=== PATIENT | female | born 1985 | race Caucasian/White ===

== ENCOUNTER 2022-05-11 14:51 | Emergency (ER) | payer BC, SELFPAY | END 2022-05-11 17:15 | disposition left against medical advice (07) | PROVIDERS: Emergency Provider Emergency Medicine | DX: R21 Rash and other nonspecific skin eruption (principal) ==

== ENCOUNTER 2024-08-30 10:50 | Emergency (ER) | payer BC, SELFPAY ==
--- NOTE | ~2024-08-30 | CT_ITS ---
EXAMINATION: CT SOFT TISSUE NECK WITH CONTRAST CLINICAL INFORMATION: Right-sided tonsil swelling and pain COMPARISON: None available. TECHNIQUE: Following the intravenous administration of 100 mL of Omnipaque 350 intravenous contrast, helical imaging was performed in the axial plane with generation of coronal and sagittal reformatted images. This CT examination was performed using dose optimization techniques as appropriate, variously including the following: *Automated exposure control *Adjustment of mA and/or kV according to patient size (this includes techniques or standardized protocols for targeted exams where dose is matched to indication/reason for exam; i.e. extremities or head) *Use of iterative reconstruction technique DLP 471 FINDINGS: Visualized intracranial parenchyma is normal. Bilateral paranasal sinuses and mastoid air cells are well-aerated. There is normal symmetric bilateral parotid, submandibular glands and thyroid lobes without focal lesion. Bilateral tonsils are symmetrical and normal. No enhancing mass seen in the oral cavity, pharynx or larynx. There is bilateral moderate size neck lymphadenopathy with lymph nodes measuring 1 cm and less in bilateral neck the lung apices are clear. The tracheal and proximal bronchial airways widely patent. The lung apices are clear. No oral cavity is slightly limited due to beam hardening from dental amalgam. Bilateral carotid arteries and jugular veins are symmetrical. CT/CT soft tissue neck w IV con IMPRESSION: Bilateral neck lymphadenopathy measuring less than 1 cm in short axis, nonspecific. No enhancing mass or airway asymmetry seen. The tonsils are symmetrical and normal. Electronically signed by: Jesus Aleman MD 08/30/2024 03:00 PM [facility]
[2024-08-30 11:20] VITALS: BP 149/98; PULSE 103; RESP 19; TEMP 36.8; O2SAT 99; BMI 29.9
--- NOTE | 2024-08-30 11:23 | ED.GENADULT ---
HPI - General Adult General Chief complaint: General Medical Stated complaint: abscess, sent from Time Seen by Provider: 08/30/24 14:18 History of Present Illness HPI narrative: Patient complains of sore throat and bilateral lateral neck pain for the last 24 hours, no runny nose, there is a mild cough, no sputum no shortness of breath no chest pain, she is able to swallow but it is uncomfortable, denies any voice change no abdominal pain no nausea vomiting or diarrhea Related Data Previous Rx's ?Medication ?Instructions ?Recorded azithromycin 250 mg tablet See Rx Instructions PO .COMPLEX #6 08/30/24 (Zithromax Z-Cliff) tabs Allergies Allergy/AdvReac Type Severity Reaction Status Date / Time amoxicillin [Augmentin] Allergy Unknown Hives Verified 08/30/24 11:22 clavulanic acid [Augmentin] Allergy Unknown Hives Verified 08/30/24 11:22 REPLACED BY [facility] Past Medical History Source: nursing notes reviewed Social History Social History Advance Directives: No Advance Directives Information Provided: Yes Do you have a plan to hurt others: No Plan Physical Exam ED Vital Signs: Vital Signs - 24 hr 08/30/24 11:20 Temperature 98.3 F Pulse Rate 103 H Respiratory Rate 19 Blood Pressure 149/98 H Pulse Oximetry 99 Oxygen Delivery Method Room Air BMI result Body Mass Index 29.9 General appearance cheerful comfortable cooperative no acute distress, speaking full sentences no drooling The ears are clear no redness of tympanic membrane no narrowing of canals The eyes no redness or discharge The nose no sinus tenderness The pharynx there is some posterior redness with a scant amount of exudate but there is no tonsillar swelling no tonsillar asymmetry, voice is normal there is no drooling or trismus, patient can swallow easily and mucous membranes are moist Neck is supple with full range of motion, there is some bilateral lateral minor tenderness no obvious swelling, there is some palpable anterior lymphadenopathy on the right Chest is clear to auscultation no adventitious sounds, breath sounds are full and equal Heart no murmur auscultated Abdomen soft nontender Extremities full range motion x4 Skin no rash Course Course Course Narrative: 38 yo female with PMH of hemachromatosis who has had sore throat for 1 day with R sided neck pain and fever last night. No medications this AM. She was recently treated for bronchitis with steroids and INH but no antibiotics. No recent procedures sent by urgent care for rule out [employer] has never had anything like this before. Able to swallow no voice changes. Will start on labs and CT neck for [employer] low suspicion clinicially this is a RAPID medical screening exam the rest of the history and physical exam is to be done by the main provider. White count was 16, patient likely has a minor illness, sepsis very unlikely, repeat pulse was 88 other vitals normal test was negative, COVID flu and strep tests were all negative CT soft tissue neck with contrast ordered from triage was negative for abscess or any acute pathology, did show some minor lymphadenopathy in the neck Patient is discharged diagnosis pharyngitis She remains well-appearing and comfortable tolerating p.o. throughout ER visit Medications Administered Discontinued Medications Generic Name Dose Route Start Last Admin Trade Name Freq PRN Reason Stop Dose Admin Iohexol 100 ml 08/30/24 13:53 08/30/24 13:56 Iohexol 350 Mg/Ml 100 Ml Infus..Btl IV 08/30/24 13:54 75 ml ONCE ONE Administration Medical Decision Making Lab Data [facility] Lab Attestation statement: I reviewed the patient's lab results. 08/30/24 12:59 08/30/24 12:59 Labs: Lab Results 08/30/24 Range/Units 12:59 WBC 16.3 H (4.8-10.8) X10*3/uL RBC 4.60 (4.20-5.50) X10*6/uL Hgb 14.3 (12.0-16.0) g/dl Hct 42.7 (37.0-47.0) % MCV 92.8 (80.0-98.0) fL MCH 31.1 (27.0-33.0) pg MCHC 33.5 (31.0-35.0) g/dl RDW 12.6 (11.0-16.0) % Plt Count 330 (160-400) X10*3/uL MPV 10.0 (9.4-12.3) fL Immature Gran % (Auto) 0.6 H (0.0-0.4) % Neut % (Auto) 77.4 H (45-73) % Lymph % (Auto) 13.6 L (20-40) % [place] % (Auto) 6.7 (2-11) % Eos % (Auto) 1.5 (0-4) % Baso % (Auto) 0.2 (0-2) % Lymph # (Auto) 2.2 (1.2-4.9) X10*3/uL [place] # (Auto) 1.1 (0.1-1.2) X10*3/uL Eos # (Auto) 0.2 (0.0-0.4) X10*3/uL Baso # (Auto) 0.0 (0.0-0.2) X10*3/uL Abs Immat Gran (auto) 0.09 H (0.00-0.03) X10*3/uL Absolute Neuts (auto) 12.6 H (2.0-8.3) x10*3/uL Absolute Nucleated RBC 0.000 (0.0-0.012) X10*3/uL Nucleated RBC % (auto) 0.0 (0.0-0.2) /100WBC Sodium 137 (135-145) mmol/L Potassium 4.1 (3.3-5.1) mmol/L Chloride 103 (96-108) mmol/L Carbon Dioxide 25 (22-29) mmol/L Anion Gap 13 (12-20) BUN 8 L (9-16) mg/dL Creatinine 0.82 (0.5-1.4) mg/dL Estim Creat Clear Calc 96.4 Estimated GFR > 60 Random Glucose 92 (60-115) mg/dL Calcium 9.6 (8.4-10.2) mg/dL Beta HCG, Quant < 2 mIU/mL Influenza Type A (PCR) NEGATIVE (Negative) Influenza Type B (PCR) NEGATIVE (Negative) RSV RNA Qual (PCR) NEGATIVE (Negative) SARS-CoV-2 RNA (RT-PCR) NEGATIVE (Negative) S. pyogenes GrpA BRAIN Negative (Negative) Discharge Plan Discharge Clinical Impression: Pharyngitis Patient Disposition: Home, Self-Care Additional Instructions: CT scan did not show any abscess or any worrisome finding in your throat On exam there was some redness to the back of her throat which is likely a virus but just in case I wrote the antibiotics Zithromax It is fine to wait a day or 2 before starting it to see if her sore throat just goes away Drink plenty of fluids, honey, Tylenol or Motrin as needed Strep COVID and flu tests were all negative Return any time any worse condition or any concerns Prescriptions: New azithromycin [Zithromax Z-Cliff] 250 mg tablet See Rx Instructions .ROUTE .COMPLEX Qty: 6 0RF Rx Instructions: For 250 mg dose pack: take 500 mg today (day 1), then 250 mg for 4 days (days 2-5) Stand Alone Forms: Work/School Release Print Language: Italian
[2024-08-30 13:04] LABS: MANUAL DIFF FLAG NO
[2024-08-30 13:05] LABS: Basophils Percent Auto 0.2 % (0-2); Eosinophils Absolute Auto 0.2 X10*3/uL (0.0-0.4); Eosinophils Percent Auto 1.5 % (0-4); Hematocrit 42.7 % (37.0-47.0); Hemoglobin 14.3 g/dl (12.0-16.0); Imm Gran Abs Auto 0.09 X10*3/uL (0.00-0.03); Imm Gran Pct Auto 0.6 % (0.0-0.4); Lymphocytes Absolute Auto 2.2 X10*3/uL (1.2-4.9); Lymphocytes Percent Auto 13.6 % (20-40); Mean Corpuscular HGB Conc 33.5 g/dl (31.0-35.0); Mean Corpuscular Hemoglobin 31.1 pg (27.0-33.0); Mean Corpuscular Volume 92.8 fL (80.0-98.0); Monocytes Absolute Auto 1.1 X10*3/uL (0.1-1.2); Monocytes Percent Auto 6.7 % (2-11); Neutrophils Absolute Auto 12.6 x10*3/uL (2.0-8.3); Neutrophils Percent Auto 77.4 % (45-73); Platelet Count 330 X10*3/uL (160-400); Red Cell Distribution Width 12.6 % (11.0-16.0); White Blood Count 16.3 X10*3/uL (4.8-10.8)
[2024-08-30 13:13] LABS: IDNOW Serial# 58CA691E; Strep A Nucleic Acid Negative (Negative)
[2024-08-30 13:24] LABS: Anion Gap 13 (12-20); Blood Urea Nitrogen 8 mg/dL (9-16); Calcium 9.6 mg/dL (8.4-10.2); Carbon Dioxide 25 mmol/L (22-29); Chloride 103 mmol/L (96-108); Creatinine Clr Calc Pharmacy 96.4; Estimated Glomerular Filt Rate > 60; Glucose Random 92 mg/dL (60-115); Potassium 4.1 mmol/L (3.3-5.1); Sodium 137 mmol/L (135-145)
[2024-08-30 13:27] LABS: HCG Quantitative < 2 mIU/mL
[2024-08-30 13:42] LABS: Influenza A PCR NEGATIVE (Negative); Influenza B PCR NEGATIVE (Negative); Resp Syncy Virus RNA Qual PCR NEGATIVE (Negative); SARS COV2 PCR INHOUSE NEGATIVE (Negative)
[2024-08-30] MEDS: iohexoL 350 MG/ML 100 ML INFUS..BTL IV (13:56)
--- OUTSIDE RECORDS SUMMARY | 2024-08-30 14:40 | XMS_ITS ---
Author Name [facility] Organization Unknown Results Test Name/Text Value Interpretation Date Range Source Ferritin SerPl-mCnc 556ng/mL Above high normal [id number] 13 - 150 [facility] Iron Satn MFr SerPl 40% Normal [id number] 15 - 50 [facility] TIBC SerPl-mCnc 198ug/dL Below low normal [id number] 250 - 450 [facility] Iron SerPl-mCnc 79ug/dL Normal [id number] 37 - 145 [facility] MCV RBC Auto 94fL Normal [id number] 80 - 100 [facility] Lymphocytes # Bld Auto 1.48y5709/uL Normal [id number] 0.6 - 3.7 [facility] WBC # Bld Auto 8.8l8470/uL Normal [id number] 4 - 11 [facility] Monocytes/leuk NFr Bld Auto 7.4% Normal [id number] 4 - 12 [facility] Imm Granulocytes/leuk NFr Bld Auto 0.2% Normal [id number] 0 - 1 [facility] nRBC # Bld Auto 2o5530/uL Normal [id number] 0 - 1 [facility] Platelet # Bld Auto 556y5799/uL Normal [id number] 150 - 420 [facility] PMV Bld Auto 10.6fL Normal [id number] 8 - 12 [facility] MCH RBC Qn Auto 30.9pg Normal [id number] 27 - 33 [facility] Eosinophil # Bld Auto 0.83v2350/uL Normal [id number] 0 - 1 [facility] Neutrophils/leuk NFr Bld Auto 66.8% Normal [id number] 39 - 72 [facility] Imm Granulocytes # Bld Auto 0.50m1543/uL Normal [id number] 0 - 0.3 [facility] RBC # Bld Auto 4.7M/uL Normal [id number] 4 - 6 [facility] Monocytes # Bld Auto 0.99g4455/uL Normal [id number] 0 - 1 [facility] RDW RBC Auto-Rto 12.3% Normal [id number] 11 - 15 [facility] Lymphocytes/leuk NFr Bld Auto 23.1% Normal [id number] 17 - 50 [facility] Eosinophil/leuk NFr Bld Auto 2% Normal [id number] 0 - 5 [facility] Basophils # Bld Auto 0.99m6848/uL Normal [id number] 0 - 1 [facility] nRBC/100 WBC Bld Auto-Rto 0% Normal [id number] 0 - 1 [facility] Neutrophils # Bld Auto 5.97y8483/uL Normal [id number] 2 - 7.6 [facility] Hct VFr Bld Auto 44.2% Normal [id number] 35 - 45 [facility] Hgb Bld-mCnc 14.5g/dL Normal [id number] 11.7 - 15.5 [facility] MCHC RBC Auto-mCnc 32.8g/dL Normal [id number] 31 - 36 [facility] Basophils/leuk NFr Bld Auto 0.5% Normal [id number] 0 - 1.4 [facility] Path Interp Bld-Imp The laboratory evaluation does not identify a specific etiology for bleeding. Normal [id number] [facility] Fact VIII Act/Nor PPP 133% Normal [id number] 66 - 143 [facility] vWf:RCo Act/Nor PPP Pl Agg 117% Normal [id number] 58 - 163 [facility] vWF Ag Act/Nor PPP IA 159% Normal [id number] 62 - 175 [facility] Thrombin time 17.9sec Normal [id number] 15.8 - 19.4 [facility] CRP SerPl HS-mCnc 7.4mg/L Above high normal [id number] - [facility] Ferritin SerPl-mCnc 520ng/mL Above high normal [id number] 13 - 150 [facility] Iron Satn MFr SerPl 14% Below low normal [id number] 15 - 50 [facility] TIBC SerPl-mCnc 245ug/dL Below low normal [id number] 250 - 450 [facility] Iron SerPl-mCnc 34ug/dL Below low normal [id number] 37 - 145 [facility] AST/ALT SerPl-cRto 1.1 Normal [id number] - [facility] Glucose SerPl-mCnc 87mg/dL Normal [id number] 70 - 100 [facility] AST SerPl w P-5'-P-cCnc 52U/L Above high normal [id number] 10 - 35 [facility] Calcium SerPl-mCnc 9.7mg/dL Normal [id number] 8.8 - 10 .2 [facility] ALT SerPl w/o P-5'-P-cCnc 46U/L Above high normal [id number] 10 - 35 [facility] Sodium SerPl-sCnc 139mmol/L Normal [id number] 136 - 144 [facility] BUN SerPl-mCnc 7mg/dL Normal [id number] 6 - 20 [facility] ALP SerPl-cCnc 99U/L Normal [id number] 9 - 122 [facility] Globulin Plas-mCnc 3g/dL Normal [id number] 2 - 3.9 [facility] HCO3 SerPl-sCnc 26mmol/L Normal [id number] 20 - 30 [facility] Creat SerPl-mCnc 0.7mg/dL Normal [id number] 0.4 - 1.3 [facility] Anion Gap3 SerPl-sCnc 9 Normal [id number] 7 - 17 [facility] BUN/Creat SerPl 10 Normal [id number] 8 - 23 [facility] Albumin SerPl BCG-mCnc 4.4g/dL Normal [id number] 3.6 - 5.1 [facility] Bilirub SerPl-mCnc 0.3mg/dL Normal [id number] - [facility] Chloride SerPl-sCnc 104mmol/L Normal [id number] 98 - 10 7 [facility] Albumin/Glob SerPl 1.5 Normal [id number] 1 - 2.2 [facility] Potassium SerPl-sCnc 4.5mmol/L Normal [id number] 3.3 - 5.3 [facility] GFR/BSA.pred SerPlBld DJF-DKK-SoLPaz 60mL/min/1.73m2 Normal [id number] - [facility] Prot SerPl-mCnc 7.4g/dL Normal [id number] 5.9 - 8.3 [facility] ESR Bld Qn 40mm/hr Above high normal [id number] 0 - 20 [facility] BKR PFA INTERPRETATIVE REPORTING See Comment Normal [id number] [facility] Closure Tme Rachel+ADP Bld Normal [id number] [facility] Closure Tme Rachel+Epinep Bld 91sec Normal [id number] 80 - 180 [facility] aPTT PPP 27.6seconds Normal [id number] [address] - [address] [facility] [address] Fibrinogen PPP-mCnc 388mg/dL Normal [id number] 194 - 4 48 [facility] INR PPP 1 Normal [id number] 0.87 - 1.12 [facility] Prothrombin time 10.7seconds Normal [id number] 9.4 - 11 .9 [facility] MCV RBC Auto 94.9fL Normal [id number] 80 - 100 [facility] Lymphocytes # Bld Auto 1.77w8904/uL Normal [id number] 0.6 - 3.7 [facility] WBC # Bld Auto 5.7t1255/uL Normal [id number] 4 - 11 [facility] Monocytes/leuk NFr Bld Auto 9.9% Normal [id number] 4 - 12 [facility] Imm Granulocytes/leuk NFr Bld Auto 0.2% Normal [id number] 0 - 1 [facility] nRBC # Bld Auto 1z3323/uL Normal [id number] 0 - 1 [facility] Platelet # Bld Auto 903s6874/uL Normal [id number] 150 - 420 [facility] PMV Bld Auto 10.7fL Normal [id number] 8 - 12 [facility] MCH RBC Qn Auto 30.5pg Normal [id number] 27 - 33 [facility] Eosinophil # Bld Auto 0.63c2041/uL Normal [id number] 0 - 1 [facility] Neutrophils/leuk NFr Bld Auto 62.1% Normal [id number] 39 - 72 [facility] Imm Granulocytes # Bld Auto 0.29u9902/uL Normal [id number] 0 - 0.3 [facility] RBC # Bld Auto 4.75M/uL Normal [id number] 4 - 6 [facility] Monocytes # Bld Auto 0.26e7516/uL Normal [id number] 0 - 1 [facility] RDW RBC Auto-Rto 12.7% Normal [id number] 11 - 15 [facility] Lymphocytes/leuk NFr Bld Auto 25.7% Normal [id number] 17 - 50 [facility] Eosinophil/leuk NFr Bld Auto 1.5% Normal [id number] 0 - 5 [facility] Basophils # Bld Auto 0.57h0000/uL Normal [id number] 0 - 1 [facility] nRBC/100 WBC Bld Auto-Rto 0% Normal [id number] 0 - 1 [facility] Neutrophils # Bld Auto 3.93c1263/uL Normal [id number] 2 - 7.6 [facility] Hct VFr Bld Auto 45.1% Above high normal [id number] 35 - 45 [facility] Hgb Bld-mCnc 14.5g/dL Normal [id number] 11.7 - 15.5 [facility] MCHC RBC Auto-mCnc 32.2g/dL Normal [id number] 31 - 36 [facility] Basophils/leuk NFr Bld Auto 0.6% Normal [id number] 0 - 1.4 [facility]
[2024-08-30 16:12] VITALS: BP 101/65; PULSE 102; RESP 18; TEMP 37.4; O2SAT 98
[2024-08-30 16:17] VITALS: BP 101/65; PULSE 102; RESP 18; TEMP 37.4; O2SAT 98
== END 2024-08-30 16:17 | disposition home or self-care (01) ==
PROVIDERS: Emergency Medicine; Emergency Provider Emergency Medicine; PCP Physician Assistant
DX: J02.9 Acute pharyngitis, unspecified (principal); M54.2 Cervicalgia; R50.9 Fever, unspecified; R10.2 Pelvic and perineal pain; Z03.818 Encounter for observation for suspected exposure to other biological agents ruled out; Z79.899 Other long term (current) drug therapy
CPT/HCPCS: 0241U; 70491; 80048; 84702; 85025; 87651; 99283; 99284; Q9967

== ENCOUNTER → 2024-08-30 11:22 | Outpatient (BNV) | payer BC, SELFPAY | PROVIDERS: Emergency Provider Emergency Medicine; PCP Physician Assistant; Visit Provider Radiology Diagnostic Radiology | DX: J35.1 Hypertrophy of tonsils (principal); R59.0 Localized enlarged lymph nodes | CPT/HCPCS: 70491 ==

== ENCOUNTER 2025-07-29 09:13 | Outpatient (REF) | payer BC, SELFPAY ==
[2025-07-29 14:32] LABS: Hematocrit 42.4 % (37.0-47.0); Hemoglobin 13.2 g/dl (12.0-16.0); Mean Corpuscular HGB Conc 31.1 g/dl (31.0-35.0); Mean Corpuscular Hemoglobin 29.8 pg (27.0-33.0); Mean Corpuscular Volume 95.7 fL (80.0-98.0); NRBC Abs Auto 0.000 X10*3/uL (0.0-0.012); NRBC Pct Auto 0.0 /100WBC (0.0-0.2); Platelet Count 279 X10*3/uL (160-400); Red Blood Count 4.43 X10*6/uL (4.20-5.50); White Blood Count 7.5 X10*3/uL (4.8-10.8)
[2025-07-29 15:09] LABS: Alanine Aminotransferase 24 U/L (0-31); Albumin Level 4.4 g/dL (3.5-5.0); Alkaline Phosphatase 60 U/L (39-117); Anion Gap 10 (12-20); Aspartate Amino Transferase 30 U/L (5-31); Blood Urea Nitrogen 13 mg/dL (9-16); Calcium 9.1 mg/dL (8.4-10.2); Carbon Dioxide 26 mmol/L (22-29); Chloride 108 mmol/L (96-108); Cholesterol 148 mg/dL (<200); Estimated Glomerular Filt Rate > 60; Ferritin 429 ng/mL (10-122); HDL Cholesterol 72 mg/dL (>40); Iron 112 mcg/dL (30-160); Percent Iron Saturation 36 % (15-50); Potassium 4.1 mmol/L (3.3-5.1); Sodium 140 mmol/L (135-145); Total Iron Binding Capacity 307 mcg/dL (228-428); Total Protein 7.4 g/dL (6.5-8.0); Triglycerides 79 mg/dL (<150); Unsaturated Iron Binding 195 ug/dL
[2025-08-02 11:24] LABS: Vitamin D 25-OH, D2 <4 ng/mL; Vitamin D 25-OH, D3 36 ng/mL; Vitamin D 25-OH, Total 36 ng/mL (30-100)
== END 2025-07-29 09:14 | disposition home or self-care (01) ==
LOC: HO.WFDLDS 09:13
PROVIDERS: Visit Provider Physician Assistant Medical
DX: Z00.00 Encounter for general adult medical examination without abnormal findings (principal); E78.5 Hyperlipidemia, unspecified; D64.9 Anemia, unspecified; Z91.018 Allergy to other foods; Z14.8 Genetic carrier of other disease; E55.9 Vitamin D deficiency, unspecified; M85.80 Other specified disorders of bone density and structure, unspecified site; Z13.31 Encounter for screening for depression; Z13.39 Encounter for screening examination for other mental health and behavioral disorders
CPT/HCPCS: 36415; 80053; 80061; 82306; 82728; 83540; 85027; 96127

== ENCOUNTER 2025-07-29 09:13 | Outpatient (AMB) | payer BC, SELFPAY ==
--- NOTE | 2025-07-29 09:17 | A.OFFPC_ITS ---
Vital Signs 07/29/25 09:24 Height 5 ft 4 in Weight 168 lb 4 oz BMI 28.9 BP 116/68 Blood Pressure Location Rt brachial Position Sitting Respiration 15 Pulse 62 Pulse Source Pulse Oximeter Temp 98.4 F Temp Source Temporal Artery Scan Pulse Oximetry (%) 98 Oxygen Delivery Method Room Air Intake Visit Reasons: CPE Intake Note: Lizzie presents in the office today to establish care. 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 Is last menstrual period known: Yes Last menstrual period: 07/29/25 Patient : No Allergies amoxicillin (Augmentin) Allergy (Unknown, Verified 07/29/25 09:21) Hives clavulanic acid (Augmentin) Allergy (Unknown, Verified 07/29/25 09:21) Hives bee pollen (bee stings) Allergy (Verified 07/29/25 09:21) Vomiting wheat Allergy (Verified 07/29/25 09:21) vomiting Tobacco use date assessed: 07/29/25 Dental Screening Dental Screen Date: 07/29/25 Did you have a dental visit in the last 12 months?: Yes Did you have a dental problem in the last 6 months where you did not have access to dental care?: No Was dental information given to patient?: Patient has dentist HPI HPI Comments History of Present Illness Details 39-year-old female with a past medical h istory of wheat allergy, vitamin-D deficiency, 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 She transferred from [facility]. Previous records not available at the appointment today. Obesity-treated with Zepbound 7.5 mg weekly. Patient says her insurance stopped covering it because her last PCP kept her on this dose for maintenance, and they would not appeal the insurance decision. Patient endorses 90 lb weight loss with GLP 1 and lifestyle modification. She is continuing to eat a low carb, healthy diet. She does not drink alcohol. She exercises 3-4 days per week. She wants to see if she can maintain her weight loss without the medic ation, and her insurance will not be covered weight loss medications in 2025. Elevated ferritin-followed by [facility]. She has 1 copy of the hemochromatosis gene mutation. They also detected vitamin-C deficiency which they think is related to high ferritin. They have discussed therapeutic phlebotomy. She sees Gynecology at [facility]. Eye and dental exams are up-to-date. She believes her tetanus vaccine is up-to-date. Seen by Dr. Tabor previously and diagnosed with wheat allergy. She has done much better since removing this from her diet. Previously was having a lot of sinopulmonary infections. Doing better since she eliminated wheat from her diet and had a booster of the pneumonia vaccine. She does have a an intermittent rash on her chest and trunk that is itchy and bumpy. Sometimes it goes away completely. This has been going on for the past few months. Sweating makes it worse. Application of topical triamcinolone temporarily improves it. Denies new environmental exposures. ROS: Constitutional: No unexplained weight loss, fever, chills, fatigue or night sweats. Eyes: No vision changes, blurry vision, double vision, eye pain, eye redness, eye discharge. ENT: No hearing loss, sneezing, congestion, runny nose or sore throat. Respiratory: No shortness of breath, cough or sputum production. Cardiovascular: No chest pain, chest pressure or chest discomfort. No palpitations or pedal edema. Gastrointestinal: No anorexia, nausea, vomiting or diarrhea. No abdominal pain or blood in stool. Genitourinary: No dysuria, hematuria, urinary frequency. Neurologic: No headache, dizziness, syncope, unilateral weakness, ataxia, numbness or tingling in the extremities. Musculoskeletal: No muscle pain, back pain, joint pain or swelling. Hematologic/Lymphatics: No bleeding or bruising. No painful lymph nodes. Skin: See HPI Endocrine: No cold or heat intolerance. No polyuria or polydipsia. Psychiatric: No depression or anxiety. No SI/HI. Physical exam: Constitutional: Alert, in no distress. Head: Normocephalic. Eyes: Pupils are equal, round and reactive to light. Extraocular muscles intact. Ear, Nose and Throat: Canals clear. TMs normal. Normal nasal mucosa. No nasal discharge. No oral lesions. Neck: Supple, Full range of motion. No lymphadenopathy. No palpable thyroid masses. Respiratory: Clear to auscultation. Cardiovascular: S1 S2 regular. No murmurs. Gastrointestinal: Abdomen soft, non-tender, non-distended. Normal bowel sounds. No palpable masses. Neurologic: No focal neurological deficits. Symmetric patellar reflexes. Moves all extremities spontaneously. Skin: Excoriations, some papules with hemorrhagic crust noted on the sides of the abdomen and on the chest and sides of the breasts. Musculoskeletal: No gross deformities. Normal range of motion. Extremities: Warm and well perfused. No clubbing, cyanosis or edema. Intact peripheral pulses bilaterally Psychiatric: Normal mood and affect [facility] Medical History (Updated 07/29/25 @ 13:41 by JAVIER Baugh) History of obesity Dermatitis Wheat allergy Routine physical examination Carrier of hemochromatosis HFE gene mutation Vitamin D deficiency H/O mammogram Surgical History (Updated 07/29/25 @ 09:32 by Nicole Mars [facility]) H/O foot surgery History of tonsillectomy History of appendectomy Family History (Updated 07/29/25 @ 09:31 by Nicole Mars [facility]) Father Hypertension Diabetes Cardiovascular disease Paternal Grandmother Hypertension Diabetes Sister Asthma Thyroid disorder Maternal Grandmother Diabetes Breast cancer Maternal Grandfather Lung cancer Social History (Updated 07/29/25 @ 09:24 by Nicole Mars [facility]) Housing: House Alcohol intake: current Patient Tobacco Use Status: Never used Tobacco e-Cigarette/Vaping Use: Never Used Second Hand Smoke Exposure: No service: No Current occupational status: employed 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 1. Little interest or pleasure in doing things: not at all 2. Feeling down, depressed, or hopeless: not at all 3. Trouble falling or staying asleep, or sleeping too much: not at all 4. Feeling tired or having little energy: not at all 5. Poor appetite or overeating: not at all 6. Feeling bad about yourself - or that you are a failure or have let yourself or your family down: not at all 7. Trouble concentrating on things, such as reading the newspaper or watching television: not at all 8. Moving or speaking so slowly that other people could have noticed. Or the opposite - being so fidgety or restless that you have been moving around a lot more than usual: not at all 9. Thoughts that you would be better off or of hurting yourself in some way: not at all Total score: 0 Depression Screening Interpretation: Negative Depression Screening Done: Yes 25065 - PHQ-9 Billing: Yes Source: Developed by Drs. Marvni Castaneda, Yoli Andersen, Liam Thompson and colleagues, with an educational paz from [employer]. Thrive Questionnaire Date Thrive assessed: 07/29/25 I am a: Patient What is your living situation today?: I have a steady place to live Within the past 12 months, did the food you bought not last and you didn't have the money to get more?: Never true Within the past 12 months, did you worry whether your food would run out before you got money to buy more?: Never true Do you have trouble paying for medicines?: No Do you have trouble getting transportation to medical appointments?: No Do you have trouble paying your heating and electricity bill?: No Do you have trouble taking care of your child, family member or friend?: No Do you have trouble with day-to-day activities such as bathing, preparing meals, shopping, managing finances, etc.?: No Are you currently unemployed and looking for a job?: No Are you interested in more education?: No Please select the resources that you would like help with: None Currently or been in a relationship where the following occur: No concerns reported THRIVE Score: 0 AUDIT C Alcohol Use Questionnaire (AUDIT-C) 1. How often do you have a drink containing alcohol?: 2-4 times a month 2. How many drinks containing alcohol do you have on a typical day when you are drinking?: 1 or 2 3. How often do you have six or more drinks on one occasion?: Never Total Score: 2 JOSÉ MANUEL-7 AMB Questionnaire JOSÉ MANUEL-7 Date JOSÉ MANUEL - 7 assessed: 07/29/25 Feeling nervous, anxious, or on edge: 0 = Not at all Not being able to stop or control worryin = Not at all Worrying too much about different things: 0 = Not at all Trouble relaxin = Not at all Being so restless that it is hard to sit still: 0 = Not at all Becoming easily annoyed or irritable: 0 = Not at all Feeling afraid as if something awful might happen: 0 = Not at all Total JOSÉ MANUEL-7 score (0-4 normal; 5-9 mild; 10-14 moderate; 15-21 severe): 0 Source: Developed by Drs. Marvin Castaneda, Yoli Andersen, Liam Thompson and colleagues, with an educational paz from [employer]. JOSÉ MANUEL-7 Assessment Billing JOSÉ MANUEL-7 Assessment Tool: JOSÉ MANUEL-7 Assessment 95697 Physical exam (Primary Care) Vital Signs: Last Vital Signs Temp 98.4 F 07/29/25 09:24 Pulse 62 07/29/25 09:24 Resp 15 07/29/25 09:24 BP 116/68 07/29/25 09:24 Pulse Ox 98 07/29/25 09:24 Oxygen Delivery Method Room Air 07/29/25 09:24 BMI result Body Mass Index 28.9 Tobacco/Smoking Status: Tobacco use Status Tobacco use date assessed 07/29/25 07/29/25 09:31 Patient Tobacco Use Status Never used Tobacco 07/29/25 09:31 e-Cigarette/Vaping Use Never Used 07/29/25 09:31 PHQ-9: PHQ-9 Score PHQ-9: Total score 0 07/29/25 09:31 Depression Screening Interpretation: Negative Thrive Assessment: Date of Thrive Assessment Date Thrive assessed 07/29/25 07/29/25 09:31 Currently or been in a relationship where the following occur: No concerns reported Coding Level of Care Code New Pt Prev Care 18-39yr(64654 Complex visit Add On G2211 Diagnoses Routine physical examination Z00.00 Vitamin D deficiency E55.9 Carrier of hemochromatosis HFE gene mutation Z14.8 Wheat allergy Z91.018 Dermatitis L30.9 History of obesity Z86.39 Additional Codes JOSÉ MANUEL-7 Assessment Billing - JOSÉ MANUEL-7 Assessment Tool: JOSÉ MANUEL-7 Assessment 57641 ([id number]) PHQ-9 - 63524 - PHQ-9 Billing: Yes ([id number]) Assessment & Plan Assessment & Plan (1) Routine physical examination: Code(s): Z00.00 - Encounter for general adult medical examination without abnormal findings Category: Medical Plan: Patient is seen today for a routine physical. As part of this visit we reviewed the following issues, which are considered and essential part of preventative health in this age group: - Annual Cat Scan Technologist exam - Blood pressure screening annually - Cholesterol screening - Osteoporosis prevention including calcium/vitamin D intake, weight bearing exercise & smoking cessation - Nutritional and exercise counseling - Counseling of injury prevention including fire prevention, smoke alarms and seat belt usage - Screening for depression - Prevention of and/or testing for infectious diseases-patient declines screenings - Recommendations about immunizations - Recommendation of an eye exam (2) Vitamin D deficiency: Code(s): E55.9 - Vitamin D deficiency, unspecified Category: Medical Plan: Check vitamin-D level. (3) Carrier of hemochromatosis HFE gene mutation: Code(s): Z14.8 - Genetic carrier of other disease Category: Medical Plan: Patient is followed by [facility]. They may be proceeding with therapeutic phlebotomy. (4) Wheat allergy: Code(s): Z91.018 - Allergy to other foods Category: Medical Plan: Continue avoidance. She also has an allergy to bee stings. Her EpiPen is up-to-date. (5) Dermatitis: Code(s): L30.9 - Dermatitis, unspecified Category: Medical Plan: Contact allergen suspected. She may need patch testing. She has a box maker and will contact them, and I will also refer her back to Dr. Tabor for evaluation. She can use triamcinolone twice daily for 7 days as needed, and we reviewed side effects of topical steroids. (6) History of obesity: Code(s): Z86.39 - Personal history of other endocrine, nutritional and metabolic disease Category: Medical Plan: 90 lb weight loss with lifestyle modifications and GLP 1. Her insurance is no longer covering this. She wants to try to maintain weight loss on her own without medication at this time. Plan Schedule physical exam in 1 year. Orders: Orders Comprehensive Met. Panel Today E55.9 - Vitamin D deficiency, unspecified, Z00.00 - Encounter for general adult medical examination without abnormal findings, Z14.8 - Genetic carrier of other disease, Z91.018 - Allergy to other foods Ferritin Today D64.9 - Anemia, unspecified, E55.9 - Vitamin D deficiency, unspecified, Z00.00 - Encounter for general adult medical examination without abnormal findings, Z14.8 - Genetic carrier of other disease, Z91.018 - Allergy to other foods Vitamin D 25-OH (D2 and D3) Today E55.9 - Vitamin D deficiency, unspecified, M85.80 - Other specified disorders of bone density and structure, unspecified site, Z00.00 - Encounter for general adult medical examination without abnormal findings, Z14.8 - Genetic carrier of other disease, Z91.018 - Allergy to other foods Complete Blood Count no Diff Today E55.9 - Vitamin D deficiency, unspecified, Z00.00 - Encounter for general adult medical examination without abnormal findings, Z14.8 - Genetic carrier of other disease, Z91.018 - Allergy to other foods IRON PROFILE Today D64.9 - Anemia, unspecified, E55.9 - Vitamin D deficiency, unspecified, Z00.00 - Encounter for general adult medical examination without abnormal findings, Z14.8 - Genetic carrier of other disease, Z91.018 - Allergy to other foods Lipid Panel Today E55.9 - Vitamin D deficiency, unspecified, E78.5 - Hyperlipidemia, unspecified, Z00.00 - Encounter for general adult medical examination without abnormal findings, Z14.8 - Genetic carrier of other disease, Z91.018 - Allergy to other foods Referrals Allergy & Immunology Referral L30.9 - Dermatitis, unspecified Medications: Discontinued azithromycin (Zithromax Z-Cliff) Discontinued Reason: Patient no longer taking For 250 mg dose pack: take 500 mg today (day 1), then 250 mg for 4 days (days 2-5) 6 tabs 0RF
[2025-07-29 09:24] VITALS: BP 116/68; PULSE 62; RESP 15; TEMP 36.9; O2SAT 98; BMI 28.9
--- OUTSIDE RECORDS SUMMARY | 2025-07-29 10:55 | XMS_ITS | Clinical Summary ---
Author Organization [facility] Address [address] [place] [id number] Phone Care Team Providers Care Visual Supervisor Name Role Phone Elizabeth Joseph Primary Care Provider [phone] Allergies Active Allergy Reactions Criticality Noted Date Comments Amoxicillin-Pot Clavulanate Hives 12/05/19 16 Venom-Honey Bee Vomiting 03/29/2023 Wheat Diarrhea,Headaches,H mariposa, Nausea and/or Vomiting 07/18/2024 Medications tirzepatide, weight loss, (ZEPBOUND) 12.5 mg/0.5 mL subcutaneous pen Inject 12.5 mg under the skin. 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 Not on anthony e 03/04/2023 Are you concerned about learning? Not on file 03/04/2023 No 03/04/2023 No 03/04/2023 Digital Access Answer Date Recorded No 03/04/2023 No 03/04/2023 Reliable internet access at home? Not on file 03/04/2023 Device with a working camera? Not on file Comments Unknown Sex and Gender Information Value Date Recorded Sex Assigned at Not on file Legal Sex Female 1:11 PM EDT Gender Identity Not on file Sexual Orientation Not on file Last Filed Vital Signs Vital Sign Reading Time Taken Comments Blood Pressure - - Pulse - - Temperature - - Respiratory Rate - - Oxygen Saturation - - Inhaled Oxygen Concentration - - Weight 71.7 kg (158 lb) 01/28/2025 3:42 PM EDT Height 162.6 cm (5' 4 ) 01/28/2025 3:42 PM EDT Body Mass Index 27.12 01/28/2025 3:42 PM EDT Plan of Treatment Health Maintenance Due Date Last Done Comments DEPRESSION SCREENING 1999 HEPATITIS C SCREENING 12/24/2005 HIV ONE-TIME SCREENING (18-65 YEARS) 12/24/2005 PAP SMEAR 12/24/2008 SCREENING FOR DIABETES 12/24/2022 INFLUENZA VACCINE (#1) 2025 9, 05/24/2018, 06/10/2017, Additional history exists COVID-19 VACCINE ( season) 2025 09/06/2021, 10/07/2020, 09/09/2020 Adult Td,Tdap Booster 05/17/2027 05/17/2017 , 06/09/2007, 12/04/1999 MENINGOCOCCAL VACCINES (ACWY) Completed 06/08/2006 HEPATITIS A VACCINES Aged Out 04/30/2009, 09/25/19 09 No longer eligible based on patient's age to complete this topic PNEUMOCOCCAL VACCINES (0-49 years) Aged Out 01/17/2023, 01/17/2023 No longer eligibl e based on patient's age to complete this topic SMOKING STATUS SCREENING (Once After 26 Yrs) Completed 01/28/2025 HIB VACCINES Aged Out No longer eligi ble based on patient's age to complete this topic MENINGOCOCCAL VACCINES (B) Aged Out N o longer eligible based on patient's age to complete this topic Medical Devices Not on file Insurance [facility] PPO EPO [facility] PPO EPO [facility] PPO EPO [facility] PPO EPO [facility] PPO EPO [facility] PPO EPO Care Teams Visual Supervisor Relationship Specialty Start Date End Date Elizabeth Joseph PA [address] [place] [address] PCP - General Physician Vice Chancellor 01/16/25 Additional Source Comments The information contained in this document represents components of the legal health record. It is not the complete legal health record.[facility]
--- OUTSIDE RECORDS SUMMARY | 2025-07-29 10:55 | XMS_ITS | Encounter Summary ---
Author Organization [facility] Address [address] [place] [id number] Care Team Providers Care Underwriter Name Role Phone Rachael Mata Primary Care Provide r Encounter Details Date Type Department Care Team ([facility] Contact Info) Description 10/31/2024 Scanned Document INTERFACE DEFAULT [address] [place] [phone] System, Provider Not In Social History Tobacco Use Types Packs/Day Years Used Date Smoking Tobacco: Never Smokeless Tobacco: Never Alcohol Use Standard Drinks/Week Comments Not Asked 0 (1 standard drink = 0.6 oz pur e alcohol) 4 drinks per week [facility] Utilities Answer Date Recorded In the past 12 months has th e electric, gas, oil, or water company threatened to shut off services in your home? No 10/16/2024 Overall Financial Resource Strain (CARDIA) Answe r Date Recorded How hard is it for you to pa y for the very basics like food, housing, medical care, and heating? Not hard at all 10/16/2024 PHQ-2 Answer Date Recorded PHQ-2 Total Score 0 10/16/2024 Hunger Vital Sign Answer Date Recorded Within the past 12 months, y ou worried that your food would run out before you got the money to buy more. Never true 10/16/19 25 Within the past 12 months, t he food you bought just didn't last and you didn't have money to get more. Never true 10/16/2024 PRAPARE - Transportation Answer Date Re corded In the past 12 months, has l ack of transportation kept you from medical appointments or from getting medications? No 09/29 In the past 12 months, has l ack of transportation kept you from meetings, work, or from getting things needed for daily living? No 10/16/2024 Housing Stability Answer Date Recorded What is your living situation today? I have a jaye place to live 10/16/2024 Housing Stability Not on file 10/16/2024 Comments Unknown Sex and Gender Information Value Date Recorded Sex Assigned at Not on file Legal Sex Female 4:16 PM EST Gender Identity Not on file Sexual Orientation Not on file documented as of this encounter Plan of Treatment Not on file documented as of this encounter Procedures Procedure Name Priority Date/Time Associated Diagnosis Comments LAB SCAN 10/31/2024 12:00 AM EST documented in this encounter Results * Lab Scan (10/31/2024 12:00 AM EST) us Provider Not In System LAB BLOOD ORDERABLES Sharona l Result documented in this encounter Visit Diagnoses Not on filedocumented in this encounter Additional Health Concerns Assessment Noted Time PHQ-9 Depression Total Score: 0 05/16/20 24 11:51 AM EDT documented as of this encounter Care Teams Underwriter Relationship Specialty Start Date End Date Rachael Mata PA [address] [phone] PCP - General 09/02/23 documented as of this encounter
--- OUTSIDE RECORDS SUMMARY | 2025-07-29 10:55 | XMS_ITS | Clinical Summary ---
Author Organization [address] Address [address] [place] [address] Phone Care Team Providers Care Starch Treating Assistant Name Role Phone Physician, No Pcp Primary Care Provider Unavaila ble Allergies Active Allergy Reactions Criticality Noted Date Comments Amoxicillin 04/08/2022 Amoxicillin-Pot Clavulanate Hives 12/05/19 16 Bee Venom Protein (Honey Bee) Nausea And Vomiting 03/29/2023 Wheat 07/18/2024 Medications butalbital-acet aminophen-caffe ine (FIORICET, ESGIC) 50-325-40 mg per tablet Take 1 tablet by mouth every 4 hours as needed for Pain for up to 28 days. 1 Active EPINEPHrine (EpiPen 2-Cliff) 0.3 mg/0.3 mL injection Inject 0.3 mg into the muscle as needed for Other (anaphylactic reaction). 2-pack. Fill with whichever brand is covered by insurance. 1 Active fluticasone propionate (FLONASE) 50 mcg/actuation nasal spray 1 Rupert by Nasal route daily. 2 Active gabapentin (NEURONTIN) 300 mg capsule Start with one cap po QHS x 3 days, increase to one cap po BID x 3 days, then increase to one cap po TID 2 Active glycopyrrolate (ROBINUL) 1 mg tablet Take 1 Tab by mouth 3 times daily. 1 Active loratadine (CLARITIN) 10 mg tablet Take 1 Tablet by mouth daily. 2 Active pedi multivit no.228/fluoride (AQHJH-NJG-LOSQ ORAL) Take by mouth. 1 daily Active Zepbound 15 mg/0.5 mL injection Inject 0.5 mL (15 mg total) under the skin every 7 (seven) days. Active ascorbic acid (VITAMIN C) 500 mg tablet Take 1 tablet (500 mg total) by mouth daily. 4 Active L norgest/e.estra dioL-e.estrad (SEASONIQUE) 0.15 mg-30 mcg (84)/10 mcg (7) per tablet Take 1 tablet by mouth 1 (one) time each day. 91 tablet 3 4 Active Active Problems Problem Noted Date Diagnosed Date Class 2 obesity due to exces s calories without serious comorbidity with body mass index (BMI) of 35.0 to 35.9 in adult 06/20/2024 Seasonal allergic rhinitis due to pollen 022 COVID-19 04/28/2021 Recurrent sinusitis 07/07/2020 Closed fracture of right ankle 04/29/2020 Generalized anxiety disorder 11/29/2017 Insomnia 11/29/2017 Snoring 03/27/2017 Overview (06/20/2024): 02/2017 Home Sleep Study did not reveal sleep apnea. 06/2017 Dx PSG did not reveal sleep apnea. Lisfranc dislocation 01/29/2016 Brachial plexus lesions 09/05/2011 Recurrent acute otitis media 11/01/2009 Immunizations Immunization Administration Dates Next Due DTP 01/10/1993, 9,10/13/1988,08/12,04/15/1988 H1N1 Inj Preservative Free 06/19/2009 HPV, Quadrivalent 02/06/2008,10/06/2007,06/09/20 07 Hepatitis A Adult (Havrix; V aqta) 19yo and older 04/30/2009,09/25/2008 Hepatitis B Pediatric (Enger ix B; Recombivax HB) to less than 20 yo 12/27/2001,08/31/2001,12/04/1999 Influenza trivalent, 0.5mL, preservative free (Fluarix; FluLaval; Fluzone) ages 6mo and older (Afluria) 3 years and older 06/19/2019,05/24/2018,06/10/2017,06/25,06/25/2008 MMR, measles mumps and rubel la Live (Priorix; M-M-R II) 12mo and older 04/21/1998,04/29/1989 Meningococcal MCV4P 06/08/2006 Moderna SARS-CoV-2 COVID-19, mRNA, LNP-S, preservative free 09/06/2021 OPV 01/10/1993, 9,08/12/1988,04/12 Td Tetanus diptheria (Tdvax) 7yo and older 12/04/1999 Tdap Tetanus diptheria acell ular pertussis (Boostrix; Adacel) 7yo and older 05/17/2017,06/09/2007 Typhoid VICPS (Typhim Vi) 2y o and older 09/25/2008 Varicella live (Varivax) 12m o and older 06/12/1994 Surgical History Surgery Date Site/Laterality Comments TONSILLECTOMY 2012 PROCEDURE: HISTORICAL TONSILLECTOMY Medical History Medical History Date Comments Recurrent acute otitis media 11/01/2009 DX: Recurrent acute otitis media Osteoarthritis of midfoot 01/29/2016 DX:Ost eoarthritis of midfoot Lisfranc dislocation 01/29/2016 DX:Lisfranc dislocation Family History Medical History Relation Name Comments Diabetes Maternal Grandfather Other: some type of cancer Maternal Grandfather lung Stroke Maternal Grandfather Breast cancer Maternal Grandmother Leukemia Mother's side uncle Diabetes Paternal Grandmother Mental illness Paternal Grandmother PT NO T SURE Thyroid disease Sister 1 Melanoma Uncle Colon cancer Neg Hx Ovarian cancer Neg Hx Uterine cancer Neg Hx Relation Name Status Comments Brother Alive healthy Father Alive healthy Maternal Grandfather (Age 69) ajay ng cancer Maternal Grandmother (Age 75) pu lmonary Mother Alive healthy Mother's side Paternal Grandfather (Age 50s) l iver Paternal Grandmother (Age 70) ol d age, complications after sugery, MRSA Sister 1 Sister 2 Alive haelthy Sister 3 Alive healthy Uncle Social History Tobacco Use Types Packs/Day Years Used Date Smoking Tobacco: Never Smokeless Tobacco: Never Tobacco Cessation:Counseling Given: Not Answered Alcohol Use Standard Drinks/Week Comments Yes 0 (1 standard drink = 0.6 oz pur e alcohol) Housing Instability Answer Date Recorde d Are you worried that in the next 2 months you may not have stable housing? No 07/18/2024 Food Access & Nutrition Answer Date Rec orded Do you have access to a vari ety of food including fruits and vegetables? Yes 07/18/2024 Access to Healthcare Answer Date Record ed Within the last 3 months, ho w many times did you visit the emergency department for your medical care? 0 07/18/2024 Health Literacy Answer Date Recorded How often do you need to hav e someone help you when you read instructions, pamphlets, or other written material from your doctor or pharmacy? Never 07/18/2024 Caregiver: How often do you need to have someone help you when you read instructions, pamphlets, or other written material from your doctor or pharmacy? Not on file 07/18/2024 Financial Risk Answer Date Recorded How hard is it for you to pa y for the very basics like food, housing, medical care, and air conditioning / heating? Not very hard 07/18/2024 Transportation Answer Date Recorded Has the lack of transportati on kept you from meetings, work, or from getting things needed for daily living? No Has the lack of transportati on kept you from medical appointments or from getting medications? No 07/18/2024 Social Isolation Answer Date Recorded How often do you feel lonely or isolated from th ose around you? Never 07/18/2024 Food Risk Answer Date Recorded Within the past 12 months we worried whether our food would run out before we got money to buy more. Never true 07/18/2024 Within the past 12 months th e food we bought just didn't last and we didn't have money to get more. Never true 07/18/2024 Dependent Care Answer Date Recorded Do you need help finding or paying for care for your loved ones. For example, children's attendant or elderly care for an older adult? No 07/18/2024 Education Answer Date Recorded Do you think completing more education or training, like finishing a GED, going to college, or learning a trade, would be helpful for you? N/A 07/18/2024 Employment and Income Answer Date Recor ded During the last four weeks, have you been actively looking for work? Patient declined 07/18/2024 Living Situation Answer Date Recorded What is your living situation? Unrecognized valu e 07/18/2024 Comments Unknown Sex and Gender Information Value Date Recorded Sex Assigned at Not on file Legal Sex Female 8:27 PM EST Gender Identity Not on file Sexual Orientation Not on file Obstetrics History Para Term AB IAB SAB Ectopic Multiple Livin g Live Births 0 0 0 0 0 0 0 0 Last Filed Vital Signs Vital Sign Reading Time Taken Comments Blood Pressure 108/80 07/18/2024 1:15 PM EST Pulse 109 07/18/2024 1:15 PM EST Temperature - - Respiratory Rate - - Oxygen Saturation - - Inhaled Oxygen Concentration - - Weight 83 kg (183 lb) 07/18/2024 1:15 PM EST Height 165.1 cm (5' 5 ) 04/08/2022 10:08 AM EDT Body Mass Index 30.45 04/08/2022 10:08 AM EDT Plan of Treatment Health Maintenance Due Date Last Done Comments Cholesterol Screening (Lipid Panel) 08/07/2022 HIV Screening 08/07/2022 Hepatitis C Screening 08/07/2022 Depression Screening 08/29/2024 07/18/2024 COVID-19 Vaccine ( season) 2025 09/06/2021, 10/07/2020, 09/09/2020 Influenza Vaccine (#1) 2025 9, 05/24/2018, 06/10/2017, Additional history exists Social Influencers of Health Screening 07/18/2025 07/18/2024 DTaP,Tdap,and Td Vaccines (9 - Td or Tdap) 05/17/2027 05/17/2017, 06/09/2007, 12/04/1999, Additional history exists Cervical Cancer Screening: HPV 07/18/2029 07/18/2024, 10/01/2013 RSV Immunization Adult Patients (1 - 1-dose 75+ series) 12/24/2062 IPV Vaccines Completed 01/10/1993, 09/29, 08/12/1988, Additional history exists Varicella Vaccines Aged Out 06/12/1994 No longer eligible based on patient's age to complete this topic MMR Vaccines Completed 04/21/1998, 04/29/1989 Meningococcal ACWY Vaccine Completed 06/08/2006 HPV Vaccines Completed 02/06/2008, 03/2008, 06/09/2007 Hepatitis A Vaccines Aged Out 04/30/2009, 09/25/19 09 No longer eligible based on patient's age to complete this topic Pneumococcal Vaccine: Pediatrics (0 to 5 Years) and At-Risk Patients (6 to 49 Years) Aged Out 01/17/2023, 01/17/2023 No longer eligibl e based on patient's age to complete this topic Hepatitis B Vaccines Completed 06/06/2024, 12/27/2001, 08/31/2001, Additional history exists HIB Vaccines Aged Out No longer eligi ble based on patient's age to complete this topic Meningococcal B Vaccine Aged Out No l onger eligible based on patient's age to complete this topic RSV Immunization Patients Under 20 months Aged Out No longer eligible based on patient's age to complete this topic Procedures Procedure Name Priority Date/Time Associated Diagnosis Comments HPV WITH REFLEX GENOTYPE Routine 07/18/2024 2:45 PM EST Encounter for annual routine gynecological examination from Last 3 Months or Most Recently Relevant to Health Maintenance Results * HPV with reflex genotype (07/18/2024 2:45 PM EST) HPV Negative Negative LAB MICROBIOLOGY METHOD 07/19/2024 2:59 PM EST [facility] Brushing/Spatula Cervix uteri structure / Unknown 07/18/2024 2:45 PM EST 07/19/2024 8:03 AM EST Glory Kinney CNM LAB MOLECULAR DIAGNOSTICS OR DERABLES Final Result [facility] [address] [place] [address], from Last 3 Months or Most Recently Relevant to Health Maintenance Insurance [facility] Care Teams Starch Treating Assistant Relationship Specialty Start Date End Date Physician, No Pcp PCP - General 07/12/24
--- OUTSIDE RECORDS SUMMARY | 2025-07-29 10:55 | XMS_ITS | Encounter Summary ---
Author Organization [facility] and [facility] Address [address] [place] [phone] Care Team Providers Care Cooperage Shop Supervisor Name Role Phone Rachael Mata Primary Care Provide r Encounter Details Date Type Department Care Team ([facility] Contact Info) Description 06/13/2023 Scanned Document INTERFACE DEFAULT [address] [place] [phone] System, Provider Not In Social History Tobacco Use Types Packs/Day Years Used Date Smoking Tobacco: Never Assessed Comments Unknown Sex and Gender Information Value Date Recorded Sex Assigned at Not on file Legal Sex Female 4:16 PM EST Gender Identity Not on file Sexual Orientation Not on file documented as of this encounter Plan of Treatment Not on file documented as of this encounter Visit Diagnoses Not on filedocumented in this encounter Care Teams Cooperage Shop Supervisor Relationship Specialty Start Date End Date Rachael Mata PA [address] [place] [phone] PCP - General 09/02/23 documented as of this encounter
--- OUTSIDE RECORDS SUMMARY | 2025-07-29 10:55 | XMS_ITS | Encounter Summary ---
Author Organization [facility] and [facility] Address [address] [place] [phone] Care Team Providers Care Satellite Tv Technician Name Role Phone Rachael Mata Primary Care Provide r Encounter Details Date Type Department Care Team ([facility] Contact Info) Description 01/03/2023 Scanned Document INTERFACE DEFAULT [address] [place] [phone] System, Provider Not In Social History Tobacco [...] on filedocumented in this encounter Care Teams Satellite Tv Technician Relationship Specialty Start Date End Date Rachael Mata PA [address] [place] [phone] PCP - General 09/02/23 documented as of this encounter
--- OUTSIDE RECORDS SUMMARY | 2025-07-29 10:55 | XMS_ITS | Encounter Summary ---
Author Organization [facility] and [facility] Address [address] [place] [phone] Care Team Providers Care Seamless Tube Drawer Name Role Phone Rachael Mata Primary Care Provide r Encounter Details Date Type Department Care Team ([facility] Contact Info) Description 11/08/2024 Scanned Document INTERFACE DEFAULT [address] [place] [phone] System, Provider Not In Social History Tobacco Use Types Packs/Day Years Used Date Smoking Tobacco: Never Smokeless Tobacco: Never Alcohol Use Standard Drinks/Week Comments Not Asked 0 (1 standard drink = 0.6 oz pur e alcohol) 4 drinks per week [facility] Utilities Answer Date Recorded In the past [...] Priority Date/Time Associated Diagnosis Comments LAB SCAN 11/08/2024 12:00 AM EDT LAB SCAN 11/08/2024 12:00 AM EDT documented in this encounter Results * Lab Scan (11/08/2024 12:00 AM EDT) us Provider Not In System LAB BLOOD ORDERABLES Sharona l Result * Lab Scan (11/08/2024 12:00 AM EDT) us Provider Not In System LAB BLOOD ORDERABLES Sharona l Result documented in this encounter Visit Diagnoses Not on filedocumented in this encounter Additional Health Concerns Assessment Noted Time PHQ-9 Depression Total Score: 0 05/16/20 24 11:51 AM EDT documented as of this encounter Care Teams Seamless Tube Drawer Relationship Specialty Start Date End Date Rachael Mata PA [address] [place] [phone] PCP - General 09/02/23 documented as of this encounter
--- OUTSIDE RECORDS SUMMARY | 2025-07-29 10:55 | XMS_ITS | Clinical Summary ---
Author Organization [address] Address [address] [place] [phone] Phone Care Team Providers Care Waitstaff Name Role Phone Rachael Mata Primary Care Provide r Medications tirzepatide, weight loss, (ZEPBOUND) 12.5 mg/0.5 mL Pen Injector Inject 1 Pen (12.5 mg total) under the skin every 7 days. Active acetaminophen (TYLENOL) 325 mg tablet Take 2 tablets (650 mg total) by mouth every 6 (six) hours as needed. Active cetirizine HCl (ZYRTEC ORAL) Take by mouth as needed. Active ascorbic acid, vitamin C, (VITAMIN C) 500 mg tabletIndicatio ns:Easy bruising,Vitami n C deficiency Take 1 tablet (500 mg total) by mouth daily. 90 tablet Active Additional Information Patient not taking.Reported on 02/04/2025 Active Problems Problem Noted Date Diagnosed Date Easy bruising 05/17/2024 Family History Medical History Relation Name Comments No Known Problems Brother Diabetes Type 2 Father Heart failure Father Kidney disease Father Lung cancer Maternal Grandfather Breast cancer Maternal Grandmother Hiatal hernia Mother Diabetes Type 2 Paternal Grandmother Hypertension Paternal Grandmother Hypothyroidism Sister 1 No Known Problems Sister 2 Relation Name Status Comments Brother Father Maternal Grandfather Maternal Grandmother Mother Paternal Grandmother Sister 1 Sister 2 Social History Tobacco Use Types Packs/Day Years Used Date Smoking Tobacco: Never Smokeless Tobacco: Never Tobacco Cessation:Counseling Given: Not Answered Alcohol Use Standard Drinks/Week Comments Not Asked 0 (1 standard drink = 0.6 oz pur e alcohol) 4 drinks per week [facility] Utilities Answer Date Recorded In the past 12 months has e electric, gas, oil, or water company threatened to shut off services in your home? No 02/04/2025 Overall Financial Resource Strain (CARDIA) Answe r Date Recorded How hard is it for you to pa y for the very basics like food, housing, medical care, and heating? Not hard at all 02/04/2025 PHQ-2 Answer Date Recorded PHQ-2 Total Score 0 02/04/2025 Hunger Vital Sign Answer Date Recorded Within the past 12 months, y ou worried that your food would run out before you got the money to buy more. Never true 02/05/20 25 Within the past 12 months, t he food you bought just didn't last and you didn't have money to get more. Never true 02/04/2025 PRAPARE - Transportation Answer Date Re corded In the past 12 months, has l ack of transportation kept you from medical appointments or from getting medications? No 04/2025 In the past 12 months, has l ack of transportation kept you from meetings, work, or from getting things needed for daily living? No 02/04/2025 Housing Stability Answer Date Recorded What is your living situation today? I have a [facility] place to live 02/04/2025 Housing Stability Not on file 02/04/2025 Comments Unknown Sex and Gender Information Value Date Recorded Sex Assigned at Not on file Legal Sex Female 4:16 PM EST Gender Identity Not on file Sexual Orientation Not on file Last Filed Vital Signs Vital Sign Reading Time Taken Comments Blood Pressure 120/61 02/04/2025 9:53 AM EDT Pulse 61 02/04/2025 9:53 AM EDT Temperature 37 C (98.6 F) 02/04/2025 9:53 AM EDT Respiratory Rate 20 02/04/2025 9:53 AM EDT Oxygen Saturation 98% 02/04/2025 9:53 AM EDT Inhaled Oxygen Concentration - - Weight 73.9 kg (163 lb) 02/04/2025 9:53 AM EDT Height 162.6 cm (5' 4.02 ) 10/16/2024 4:00 PM ES T Body Mass Index 27.96 10/16/2024 4:00 PM EST Plan of Treatment Health Maintenance Due Date Last Done Comments HIV screening 12/24/2000 Tetanus adult (Td q 10,TDAP once) 2007 Cervical cancer screening 12/24/2008 Influenza vaccine 03/29/2025 06/19/2019, , 06/10/2017, Additional history exists Covid-19 vaccine series ( season) 2025 09/06/2021, 10/07/2020, 09/09/2020 RSV Immunization (1 - 1-dose 75+ series) 12/24/2062 Meningococcal Vaccine Completed 06/08/2006 Hepatitis C screening Completed 2024 , 2024, 11/07/2024 Meningococcal B Vaccine Aged Out No l onger eligible based on patient's age to complete this topic Pneumococcal Vaccine (2 - 49 years) Aged Out No longer eligible based on patient's age to complete this topic Insurance [facility] BS Care Teams Waitstaff Relationship Specialty Start Date End Date Rachael Mata PA [address] [phone] PCP - General 09/02/23
--- OUTSIDE RECORDS SUMMARY | 2025-07-29 10:55 | XMS_ITS | Encounter Summary ---
Author Organization [facility] and [facility] Address [address] [place] [phone] Care Team Providers Care Au Pair Name Role Phone Rachael Mata Primary Care Provide r Encounter Details Date Type Department Care Team ([facility] Contact Info) Description 03/29/2023 Scanned Document INTERFACE DEFAULT [address] [place] [phone] System, Provider Not In Social History Tobacco [...] on filedocumented in this encounter Care Teams Au Pair Relationship Specialty Start Date End Date Rachael Mata PA [address] [place] [phone] PCP - General 09/02/23 documented as of this encounter
--- OUTSIDE RECORDS SUMMARY | 2025-07-29 10:55 | XMS_ITS ---
Author Name [facility] Organization Unknown Results Test Name/Text Value Interpretation Date Range Source Ferritin SerPl-mCnc 634.0 ng/mL Above high normal 10/17/2024 13 - 150 [facility] TIBC SerPl-mCnc 255.0 ug/dL Normal 10/17/2024 250 - 450 [facility] Iron SerPl-mCnc 60.0 ug/dL Normal 10/17/2024 37 - 145 [facility] Iron Satn MFr SerPl 24.0 % Normal 10/17/2024 15 - 50 [facility] MCV RBC Auto 91.9 fL Normal 10/16/2024 80 - [address] MCH RBC Qn Auto 30.5 pg Normal 10/16/2024 27 - 33 [facility] Lymphocytes/leuk NFr Bld Auto 21.3 % Normal 10/16/2024 17 - 50 [facility] Monocytes/leuk NFr Bld Auto 6.3 % Normal 10/16/2024 4 - 12 [facility] Eosinophil # Bld Auto 0.16 x 1000/uL Normal 10/16/2024 0 - 1 [facility] Imm Granulocytes # Bld Auto 0.03 x 1000/uL Normal 10/16/2024 0 - 0.3 [facility] MCHC RBC Auto-mCnc 33.2 g/dL Normal 10/16/2024 31 - 36 [facility] Basophils/leuk NFr Bld Auto 0.4 % Normal 10/16/2024 0 - 1.4 [facility] nRBC # Bld Auto 0.0 x 1000/uL Normal 10/16/2024 0 - 1 [facility] Hct VFr Bld Auto 42.2 % Normal 10/16/2024 35 - 45 [facility] RDW RBC Auto-Rto 12.8 % Normal 10/16/2024 11 - 15 [facility] Eosinophil/leuk NFr Bld Auto 1.3 % Normal 10/16/2024 0 - 5 [facility] Monocytes # Bld Auto 0.75 x 1000/uL Normal 10/16/2024 0 - 1 [facility] Neutrophils/leuk NFr Bld Auto 70.4 % Normal 10/16/2024 39 - 72 [facility] nRBC/100 WBC Bld Auto-Rto 0.0 % Normal 10/16/2024 0 - 1 [facility] Hgb Bld-mCnc 14.0 g/dL Normal 10/16/2024 11.7 - 15.5 [facility] Platelet # Bld Auto 396.0 x1000/uL Normal 10/16/2024 150 - 420 [facility] Basophils # Bld Auto 0.05 x 1000/uL Normal 10/16/2024 0 - 1 [facility] PMV Bld Auto 10.3 fL Normal 10/16/2024 8 - [address] Lymphocytes # Bld Auto 2.55 x 1000/uL Normal 10/16/2024 0.6 - 3.7 [facility] Neutrophils # Bld Auto 8.46 x 1000/uL Above high normal 10/16/2024 2 - 7.6 [facility] WBC # Bld Auto 12.0 x1000/uL Above high normal 10/16/2024 4 - 11 [facility] Imm Granulocytes/leuk NFr Bld Auto 0.3 % Normal 10/16/2024 0 - 1 [facility] RBC # Bld Auto 4.59 M/uL Normal 10/16/2024 4 - 6 [facility] Path Interp Bld-Imp No evidence for platelet dysfunction or vWD. Normal 10/09/2024 [facility] Closure Tme Rachel+Epinep Bld 84.0 sec Normal 10/09/2024 80 - 180 [facility] Closure Tme Rachel+ADP Bld Normal 10/09/2024 [facility] BKR PFA INTERPRETATIVE REPORTING See Comment Normal 10/09/2024 [facility] RISTOCETIN 0.25MG/ML AGGREGATION 2.0 Ohms Normal 10/09/2024 - 5 [facility] PA Rachel 5 ug/mL Bld 45.0 Ohms Normal 10/09/2024 - [facility] PA Rachel ATP secr 5 ug/mL Bld 1.26 nmols Normal 10/09/2024 - [facility] PA Rachel 1 ug/mL Bld 37.0 Ohms Normal 10/09/2024 - [facility] PA AA Bld-aCnc 30.0 Ohms Normal 10/09/2024 - [facility] PA Rachel ATP secr 1 ug/mL Bld 1.07 nmols Normal 10/09/2024 - [facility] PA Thromb ATP secr 1 U/mL Bld 1.58 nmols Normal 10/09/2024 0.5 - [facility] PA ADP Bld-aCnc 25.0 Ohms Normal 10/09/2024 - [facility] PA AA ATP secr 500 umol/L Bld 1.84 nmols Normal 10/09/2024 - [facility] PA Rist 1.0 mg/mL Bld 16.0 Ohms Normal 10/09/2024 - [facility] PA ADP ATP secr 10 umol/L Bld 0.59 nmols Normal 10/09/2024 - [facility] Hgb Bld-mCnc 14.1 g/dL Normal 10/09/2024 11.7 - 15.5 [facility] MCH RBC Qn Auto 31.3 pg Normal 10/09/2024 27 - 33 [facility] Hct VFr Bld Auto 43.0 % Normal 10/09/2024 35 - 45 [facility] Neutrophils # Bld Auto 15.0 x 1000/uL Above high normal 10/09/2024 2 - 7.6 [facility] PMV Bld Auto 10.6 fL Normal 10/09/2024 8 - 12 [facility] T MCHC RBC Auto-mCnc 32.8 g/dL Normal 10/09/2024 31 - 36 [facility] MCV RBC Auto 95.6 fL Normal 10/09/2024 80 - 100 [facility] T RDW RBC Auto-Rto 13.2 % Normal 10/09/2024 11 - 15 [facility] Platelet # Bld Auto 320.0 x1000/uL Normal 10/09/2024 150 - 420 [facility] RBC # Bld Auto 4.5 M/uL Normal 10/09/2024 4 - 6 [facility] WBC # Bld Auto 17.4 x1000/uL Above high normal 10/09/2024 4 - 11 [facility] Iron SerPl-mCnc 79.0 ug/dL Normal 08/08/2024 37 - 145 [facility] Iron Satn MFr SerPl 40.0 % Normal 08/08/2024 15 - 50 [facility] TIBC SerPl-mCnc 198.0 ug/dL Below low normal 08/08/2024 250 - 450 [facility] Ferritin SerPl-mCnc 556.0 ng/mL Above high normal 08/08/2024 13 - 150 [facility] Lymphocytes/leuk NFr Bld Auto 23.1 % Normal 08/08/2024 17 - 50 [facility] Imm Granulocytes # Bld Auto 0.02 x 1000/uL Normal 08/08/2024 0 - 0.3 [facility] Hgb Bld-mCnc 14.5 g/dL Normal 08/08/2024 11.7 - 15.5 [facility] Neutrophils # Bld Auto 5.68 x 1000/uL Normal 08/08/2024 2 - 7.6 [facility] Neutrophils/leuk NFr Bld Auto 66.8 % Normal 08/08/2024 39 - 72 [facility] Basophils/leuk NFr Bld Auto 0.5 % Normal 08/08/2024 0 - 1.4 [facility] MCHC RBC Auto-mCnc 32.8 g/dL Normal 08/08/2024 31 - 36 [facility] nRBC/100 WBC Bld Auto-Rto 0.0 % Normal 08/08/2024 0 - 1 [facility] RDW RBC Auto-Rto 12.3 % Normal 08/08/2024 11 - 15 [facility] Monocytes/leuk NFr Bld Auto 7.4 % Normal 08/08/2024 4 - 12 [facility] Monocytes # Bld Auto 0.63 x 1000/uL Normal 08/08/2024 0 - 1 [facility] Lymphocytes # Bld Auto 1.96 x 1000/uL Normal 08/08/2024 0.6 - 3.7 [facility] RBC # Bld Auto 4.7 M/uL Normal 08/08/2024 4 - 6 [facility] MCV RBC Auto 94.0 fL Normal 08/08/2024 80 - [address] nRBC # Bld Auto 0.0 x 1000/uL Normal 08/08/2024 0 - 1 [facility] Basophils # Bld Auto 0.04 x 1000/uL Normal 08/08/2024 0 - 1 [facility] Hct VFr Bld Auto 44.2 % Normal 08/08/2024 35 - 45 [facility] Imm Granulocytes/leuk NFr Bld Auto 0.2 % Normal 08/08/2024 0 - 1 [facility] Eosinophil # Bld Auto 0.17 x 1000/uL Normal 08/08/2024 0 - 1 [facility] WBC # Bld Auto 8.5 x1000/uL Normal 08/08/2024 4 - 11 [facility] MCH RBC Qn Auto 30.9 pg Normal 08/08/2024 27 - 33 [facility] Eosinophil/leuk NFr Bld Auto 2.0 % Normal 08/08/2024 0 - 5 [facility] PMV Bld Auto 10.6 fL Normal 08/08/2024 8 - [address] Platelet # Bld Auto 359.0 x1000/uL Normal 08/08/2024 150 - 420 [facility] Path Interp Bld-Imp The laboratory evaluation does not identify a specific etiology for bleeding. Normal 05/17/2024 [facility] Fact VIII Act/Nor PPP 133.0 % Normal 05/17/2024 66 - 143 [facility] vWf:RCo Act/Nor PPP Pl Agg 117.0 % Normal 05/17/2024 58 - 163 [facility] vWF Ag Act/Nor PPP IA 159.0 % Normal 05/17/2024 62 - 175 [facility] Thrombin time 17.9 sec Normal 05/17/2024 15.8 - 19.4 [facility] CRP SerPl HS-mCnc 7.4 mg/L Above high normal 05/17/2024 - [facility] Ferritin SerPl-mCnc 520.0 ng/mL Above high normal 05/17/2024 13 - 150 [facility] Iron SerPl-mCnc 34.0 ug/dL Below low normal 05/17/2024 37 - 145 [facility] TIBC SerPl-mCnc 245.0 ug/dL Below low normal 05/17/2024 250 - 450 [facility] Iron Satn MFr SerPl 14.0 % Below low normal 05/17/2024 15 - 50 [facility] Anion Gap3 SerPl-sCnc 9.0 Normal 05/17/2024 7 - 17 [facility] Albumin/Glob SerPl 1.5 Normal 05/17/2024 1 - 2.2 [facility] GFR/BSA.pred SerPlBld UOY-EVI-GfODqu >60.0 mL/min/1.73m2 Normal 05/17/2024 - [facility] Globulin Plas-mCnc 3.0 g/dL Normal 05/17/2024 2 - 3.9 [facility] Bilirub SerPl-mCnc 0.3 mg/dL Normal 05/17/2024 - [facility] ALT SerPl w/o P-5'-P-cCnc 46.0 U/L Above high normal 05/17/2024 10 - 35 [facility] BUN SerPl-mCnc 7.0 mg/dL Normal 05/17/2024 6 - 20 [facility] ALP SerPl-cCnc 99.0 U/L Normal 05/17/2024 9 - 122 [facility] Sodium SerPl-sCnc 139.0 mmol/L Normal 05/17/2024 136 - 14 4 [facility] BUN/Creat SerPl 10.0 Normal 05/17/2024 8 - 23 [facility] HCO3 SerPl-sCnc 26.0 mmol/L Normal 05/17/2024 20 - 30 [facility] Calcium SerPl-mCnc 9.7 mg/dL Normal 05/17/2024 8.8 - 10.2 [facility] AST/ALT SerPl-cRto 1.1 Normal 05/17/2024 - [facility] Chloride SerPl-sCnc 104.0 mmol/L Normal 05/17/2024 98 - 1 07 [facility] Creat SerPl-mCnc 0.7 mg/dL Normal 05/17/2024 0.4 - 1.3 [facility] Potassium SerPl-sCnc 4.5 mmol/L Normal 05/17/2024 3.3 - 5 .3 [facility] Prot SerPl-mCnc 7.4 g/dL Normal 05/17/2024 5.9 - 8.3 [facility] Albumin SerPl BCG-mCnc 4.4 g/dL Normal 05/17/2024 3.6 - 5.1 [facility] AST SerPl w P-5'-P-cCnc 52.0 U/L Above high normal 05/17/2024 10 - 35 [facility] Glucose SerPl-mCnc 87.0 mg/dL Normal 05/17/2024 70 - 100 [facility] ESR Bld Qn 40.0 mm/hr Above high normal 05/16/2024 0 - 20 [facility] Closure Tme Rachel+Epinep Bld 91.0 sec Normal 05/16/2024 80 - 180 [facility] Closure Tme Rachel+ADP Bld Normal 05/16/2024 [facility] BKR PFA INTERPRETATIVE REPORTING See Comment Normal 05/16/2024 [facility] aPTT PPP 27.6 seconds Normal 05/16/2024 23 - 31.4 [facility] T Fibrinogen PPP-mCnc 388.0 mg/dL Normal 05/16/2024 194 - 4 48 [facility] INR PPP 1.0 Normal 05/16/2024 0.87 - 1.12 [facility] T Prothrombin time 10.7 seconds Normal 05/16/2024 9.4 - 11. 9 [facility] Eosinophil # Bld Auto 0.08 x 1000/uL Normal 05/16/2024 0 - 1 [facility] Lymphocytes # Bld Auto 1.35 x 1000/uL Normal 05/16/2024 0.6 - 3.7 [facility] MCHC RBC Auto-mCnc 32.2 g/dL Normal 05/16/2024 31 - 36 [facility] PMV Bld Auto 10.7 fL Normal 05/16/2024 8 - [address] Monocytes/leuk NFr Bld Auto 9.9 % Normal 05/16/2024 4 - 12 [facility] Basophils # Bld Auto 0.03 x 1000/uL Normal 05/16/2024 0 - 1 [facility] Imm Granulocytes # Bld Auto 0.01 x 1000/uL Normal 05/16/2024 0 - 0.3 [facility] nRBC # Bld Auto 0.0 x 1000/uL Normal 05/16/2024 0 - 1 [facility] WBC # Bld Auto 5.3 x1000/uL Normal 05/16/2024 4 - 11 [facility] RBC # Bld Auto 4.75 M/uL Normal 05/16/2024 4 - 6 [facility] Basophils/leuk NFr Bld Auto 0.6 % Normal 05/16/2024 0 - 1.4 [facility] Imm Granulocytes/leuk NFr Bld Auto 0.2 % Normal 05/16/2024 0 - 1 [facility] MCV RBC Auto 94.9 fL Normal 05/16/2024 80 - [address] MCH RBC Qn Auto 30.5 pg Normal 05/16/2024 27 - 33 [facility] Lymphocytes/leuk NFr Bld Auto 25.7 % Normal 05/16/2024 17 - 50 [facility] Hct VFr Bld Auto 45.1 % Above high normal 05/16/2024 35 - 45 [facility] Neutrophils # Bld Auto 3.27 x 1000/uL Normal 05/16/2024 2 - 7.6 [facility] Neutrophils/leuk NFr Bld Auto 62.1 % Normal 05/16/2024 39 - 72 [facility] Eosinophil/leuk NFr Bld Auto 1.5 % Normal 05/16/2024 0 - 5 [facility] Platelet # Bld Auto 332.0 x1000/uL Normal 05/16/2024 150 - 420 [facility] Hgb Bld-mCnc 14.5 g/dL Normal 05/16/2024 11.7 - 15.5 [facility] RDW RBC Auto-Rto 12.7 % Normal 05/16/2024 11 - 15 [facility] nRBC/100 WBC Bld Auto-Rto 0.0 % Normal 05/16/2024 0 - 1 [facility] Monocytes # Bld Auto 0.52 x 1000/uL Normal 05/16/2024 0 - 1 [facility]
--- OUTSIDE RECORDS SUMMARY | 2025-07-29 10:55 | XMS_ITS | Encounter Summary ---
Author Organization [facility] Address [address] [place] [phone] Phone Care Team Providers Care Machine Silk Screen Printer Name Role Phone Elizabeth Joseph Primary Care Provider [phone] Encounter Details Date Type Department Care Team (Late st Contact Info) Description 01/29/2025 Procedure Pass [facility] [address] [place] [address] Social History Tobacco Use Types Packs/Day Years Used Date Smoking Tobacco: Never Smokeless Tobacco: Never Alcohol Use Standard Drinks/Week Comments Not Currently [...] on filedocumented in this encounter Care Teams Machine Silk Screen Printer Relationship Specialty Start Date End Date Elizabeth Joseph PA [address] [place] [address] PCP - General Physician Marketing Technologist 01/16/25 documented as of this encounter Additional Source Comments The information contained in this document represents components of the legal health record. It is not the complete legal health record.[facility]
--- OUTSIDE RECORDS SUMMARY | 2025-07-29 10:56 | XMS_ITS | Encounter Summary ---
Author Organization [facility] Address [address] [place] [phone] Care Team Providers Care Gyro Mechanic Name Role Phone Rachael Mata Primary Care Provide r Encounter Details Date Type Department Care Team ([facility] Contact Info) Description 09/09/2023 Scanned Document INTERFACE DEFAULT [address] [place] [phone] System, Provider Not In Social History Tobacco [...] on filedocumented in this encounter Care Teams Gyro Mechanic Relationship Specialty Start Date End Date Rachael Mata PA [address] [place] [phone] PCP - General 09/02/23 documented as of this encounter
--- OUTSIDE RECORDS SUMMARY | 2025-07-29 10:56 | XMS_ITS | Encounter Summary ---
Author Organization [facility] Address [address] [place] [phone] Care Team Providers Care Welding Machine Operator Friction Name Role Phone Rachael Mata Primary Care Provide r Encounter Details Date Type Department Care Team ([facility] Contact Info) Description 01/07/2025 Scanned Document INTERFACE DEFAULT [address] [place] [phone] System, Provider Not In Social History Tobacco Use Types Packs/Day Years Used Date Smoking Tobacco: Never Smokeless Tobacco: Never Alcohol Use Standard Drinks/Week Comments Not Asked 0 (1 standard drink = 0.6 oz pur e alcohol) 4 drinks per week [facility] Utilities Answer Date Recorded In the past [...] your living situation today? I have a [facility] place to live 10/16/2024 Housing Stability Not [...] documented as of this encounter Care Teams Welding Machine Operator Friction Relationship Specialty Start Date End Date Rachael Mata PA [address] [phone] PCP - General 09/02/23 documented as of this encounter
--- OUTSIDE RECORDS SUMMARY | 2025-07-29 10:56 | XMS_ITS | Encounter Summary ---
Author Organization [facility] Address [address] [place] [phone] Care Team Providers Care Distribution Manager Name Role Phone Rachael Mata Primary Care Provide r Encounter Details Date Type Department Care Team ([facility] Contact Info) Description 09/16/2023 Scanned Document [facility] Health Information Management [address] [place] [phone] External, Provider Social History Tobacco Use Types Packs/Day Years [...] on filedocumented in this encounter Care Teams Distribution Manager Relationship Specialty Start Date End Date Rachael Mata PA [address] [place] [phone] PCP - General 09/02/23 documented as of this encounter
--- OUTSIDE RECORDS SUMMARY | 2025-07-29 10:56 | XMS_ITS | Encounter Summary ---
Author Organization [facility] Address [address] [place] [phone] Care Team Providers Care Art Class Model Name Role Phone Rachael Mata Primary Care Provide r Encounter Details Date Type Department Care Team ([facility] Contact Info) Description 01/28/2025 Scanned Document INTERFACE DEFAULT [address] [place] [phone] System, Provider Not In Social History Tobacco Use Types Packs/Day Years Used Date Smoking Tobacco: Never Smokeless Tobacco: Never Alcohol Use Standard Drinks/Week Comments Not Asked 0 (1 standard drink = 0.6 oz pur e alcohol) 4 drinks per week [facility] Utilities Answer Date Recorded In the [...] your living situation today? I have a [facility] place to live 10/16/2024 Housing Stability [...] documented as of this encounter Care Teams Art Class Model Relationship Specialty Start Date End Date Rachael Mata PA [address] [phone] PCP - General 09/02/23 documented as of this encounter
--- OUTSIDE RECORDS SUMMARY | 2025-07-29 10:56 | XMS_ITS | Clinical Summary ---
Author Organization [facility] Address [address] [place] [address] Care Team Providers Care Energy Trading Analyst Name Role Phone Ramesh Blanco MD Primary Care Provider [phone] Medications No known medications Active Problems No known active problems Social History Tobacco Use Types Packs/Day Years Used Date Smoking Tobacco: Never Smokeless Tobacco: Never Alcohol Use Standard Drinks/Week Comments Yes 0 (1 standard drink = 0.6 oz pur e alcohol) social Sex and Gender Information Value Date Recorded Sex Assigned at Not on file Gender Identity Not on file Sexual Orientation Not on file Job Start Date Occupation Industry Not on file Not on file Not on file Last Filed Vital Signs Vital Sign Reading Time Taken Comments Blood Pressure 143/73 02/22/2022 2:08 PM EDT Pulse 73 02/22/2022 2:08 PM EDT Temperature 36.7 C (98.1 F) 02/22/2022 2:08 PM EDT Respiratory Rate - - Oxygen Saturation 100% 02/22/2022 2:08 PM EDT Inhaled Oxygen Concentration - - Weight 93.4 kg (206 lb) 02/22/2022 2:08 PM EDT Height 165.1 cm (5' 5 ) 02/22/2022 2:08 PM EDT Body Mass Index 34.28 02/22/2022 2:08 PM EDT Plan of Treatment Health Maintenance Due Date Last Done Comments Hepatitis B Vaccines (1 of 3 - 3-dose series) 1987 Hepatitis C Screening 1987 COVID-19 Vaccine (#1) 06/25/1988 Depression Screening 1999 Preventative Health Evaluation 12/24/2005 Cervical Cancer Screening (Pap Smear) 12/24/2008 DTap / Tdap / Td (7 - Td or Tdap) 06/09/2017 06/09/2007, 01/10/1993, 05/13/1989, Additional history exists Influenza Vaccine (#1) 2025 , 05/24/2018, 06/10/2017, Additional history exists Pneumococcal Vaccine Aged Out No long er eligible based on patient's age to complete this topic RSV Ped < 20 months Aged Out No longe r eligible based on patient's age to complete this topic Care Teams Energy Trading Analyst Relationship Specialty Start Date End Date Ramesh Blanco MD PCP - General Internal Medicine 06/12/19
--- OUTSIDE RECORDS SUMMARY | 2025-07-29 10:56 | XMS_ITS | Encounter Summary ---
Author Organization [facility] Address [address] [place] [phone] Care Team Providers Care High Worker Name Role Phone Rachael Mata Primary Care Provide r Encounter Details Date Type Department Care Team ([facility] Contact Info) Description 10/03/2023 Scanned Document INTERFACE DEFAULT [address] [place] [phone] System, Provider Not In Social History Tobacco [...] Priority Date/Time Associated Diagnosis Comments LAB SCAN 10/03/2023 12:00 AM EST documented in this encounter Results * LAB SCAN (10/03/2023 12:00 AM EST) us Provider Not In System LAB BLOOD ORDERABLES Sharona l Result documented in this encounter Visit Diagnoses Not on filedocumented in this encounter Care Teams High Worker Relationship Specialty Start Date End Date Rachael Mata PA [address] [phone] PCP - General 09/02/23 documented as of this encounter
--- OUTSIDE RECORDS SUMMARY | 2025-07-29 10:56 | XMS_ITS | Encounter Summary ---
Author Organization [facility] Address [address] [place] [phone] Care Team Providers Care Security Assistant Name Role Phone Rachael Mata Primary Care Provide r Encounter Details Date Type Department Care Team ([facility] Contact Info) Description 09/01/2023 Scanned Document INTERFACE DEFAULT [address] [place] [phone] System, Provider Not In Social History Tobacco [...] Priority Date/Time Associated Diagnosis Comments LAB SCAN 09/01/2023 12:00 AM EST documented in this encounter Results * LAB SCAN (09/01/2023 12:00 AM EST) us Provider Not In System LAB BLOOD ORDERABLES Sharona l Result documented in this encounter Visit Diagnoses Not on filedocumented in this encounter Care Teams Security Assistant Relationship Specialty Start Date End Date Rachael Mata PA [address] [phone] PCP - General 09/02/23 documented as of this encounter
== END 2025-07-29 09:56 | disposition home or self-care (01) ==
LOC: HO.HMCFM 09:14
PROVIDERS: Visit Provider Physician Assistant Medical
DX: Z00.00 Encounter for general adult medical examination without abnormal findings (principal); E55.9 Vitamin D deficiency, unspecified; Z14.8 Genetic carrier of other disease; Z91.018 Allergy to other foods; L30.9 Dermatitis, unspecified; Z86.39 Personal history of other endocrine, nutritional and metabolic disease